=== PATIENT | female | born 1960 | race Caucasian/White ===

== ENCOUNTER → 2020-11-04 10:19 | Outpatient (CLI) | payer BC, SELFPAY ==
--- NOTE | ~2020-11-04 | DEXA_ITS ---
Bone Density Report Name: Daysi Schmidt Age: 60 Sex: Female Ethnicity: White Date of : 1960 Indication: postmenopausal; screening for osteoporosis; height loss; Referring Provider: Annamarie Lincoln Study: Bone densitometry was performed. Exam Date: November 04, 2020 Accession number: [id number] Bone Density: Region BMD T-score Z-score Classification AP Spine (L1-L4) 0.958 -0.8 0.7 Normal Femoral Neck (Left) 0.751 -0.9 0.4 Normal Total Hip (Left) 0.895 -0.4 0.6 Normal Femoral Neck (Right) 0.724 -1.1 0.2 Osteopenia Total Hip (Right) 0.843 -0.8 0.2 Normal Total Hip Mean 0.869 -0.6 0.4 Normal World Health Organization criteria for BMD impression classify patients as: Normal (T-score at or above -1.0), Osteopenia (T-score between -1.0 and -2.5), or Osteoporosis (T-score at or below -2.5). 10-year Fracture Risk(1): Major Osteoporotic Fracture 6.4% Hip Fracture 0.4% Reported Risk Factors: [place] (), Neck BMD=0.724, BMI=19.9 (1) FRAX(R) Version 3.08. Fracture probability calculated for an untreated patient. Fracture probability may be lower if the patient has received treatment. Clinical Information Provided by Patient: Has used the following medications: Vitamin D Patient maximum height was 68 Menopause Age: 49 Drinks caffeinated beverages Onset of menses at age 15 Number of children 0 Impression: The patient has low bone mass, based on the Right Femoral Neck T-score. The patient has an estimated ten-year risk of hip fracture of 0.4% and an estimated ten-year risk of major fracture of 6.4%, based on the WHO FRAX algorithm. Discussion: BONE DENSITY IS LOW AT ONE OR MORE SKELETAL SITES. This patient's lowest T-score is low at one or more skeletal sites. It meets the World Health Organization's (WHO) criteria for ?low bone mass? (T-score between -1.0 and -2.5). The patient's 10-year risk of fracture as calculated by FRAX is less than the threshold where pharmacological therapy is recommended by the National Osteoporosis Foundation (NOF). However, all treatment decisions require clinical judgment and consideration of individual patient factors, including patient preferences, comorbidities, previous drug use, risk factors not captured in the FRAX model (e.g., frailty, falls, vitamin D deficiency, increased bone turnover, interval significant decline in bone density) and possible under or overestimation of fracture risk by FRAX. The patient should follow a healthful lifestyle (good nutrition with adequate calcium and vitamin D, and appropriate weight-bearing exercise). Follow-Up: Consider repeating this study in 2 to 3 years to reassess this patient's status, or sooner if there is some new clinical indication. Reported by: TAWANNA on 11/04/2020 10:40:00 AM.
== END ==
PROVIDERS: PCP Internal Medicine
DX: E55.9 Vitamin D deficiency, unspecified (principal); M85.80 Other specified disorders of bone density and structure, unspecified site; E89.0 Postprocedural hypothyroidism; M85.851 Other specified disorders of bone density and structure, right thigh
CPT/HCPCS: 77080

== ENCOUNTER → 2023-01-16 12:24 | Outpatient (CLI) | payer BC, SELFPAY ==
--- NOTE | ~2023-01-16 | DEXA_ITS ---
Bone Density Report Name: ZACK RAWLS Age: 62 Sex: Female Ethnicity: White Date of : 1960 Indication: postmenopausal; screening for osteoporosis; height loss; Referring Provider: Annamarie Lincoln Study: Bone densitometry was performed. Exam Date: January 16, 2023 Accession number: [id number] Bone Density: Region BMD T-score Z-score Classification AP Spine (L1-L4) 0.955 -0.8 0.8 Normal Femoral Neck (Left) 0.696 -1.4 0.0 Osteopenia Total Hip (Left) 0.914 -0.2 0.9 Normal Femoral Neck (Right) 0.659 -1.7 -0.3 Osteopenia Total Hip (Right) 0.852 -0.7 0.4 Normal Total Hip Mean 0.883 -0.5 0.7 Normal World Health Organization criteria for BMD impression classify patients as: Normal (T-score at or above -1.0), Osteopenia (T-score between -1.0 and -2.5), or Osteoporosis (T-score at or below -2.5). 10-year Fracture Risk(1): Major Osteoporotic Fracture 9.0% Hip Fracture 1.0% Reported Risk Factors: [place] (), Neck BMD=0.659, BMI=23.4 (1) FRAX(R) Version 3.08. Fracture probability calculated for an untreated patient. Fracture probability may be lower if the patient has received treatment. Previous Exams: Region Exam Age BMD T-score BMD Change BMD Change Date g/cm2 vs Baseline vs Previous AP Spine(L1-L4) 01/16/2023 62 0.955 -0.8 -0.003 -0.003 11/04/2020 60 0.958 -0.8 Total Hip(Left) 01/16/2023 62 0.914 -0.2 0.019 0.019 11/04/2020 60 0.895 -0.4 Total Hip(Right) 01/16/2023 62 0.852 -0.7 0.008 0.008 11/04/2020 60 0.843 -0.8 *Denotes significance at 95% confidence level, LSC for AP Spine = 0.022 g/cm2, LSC for Total Hip = 0.027 g/cm2 Clinical Information Provided by Patient: Has used the following medications: Vitamin D, MTV Patient maximum height was 68 Menopause Age: 46 Onset of menses at age 15 Number of children 0 Impression: The patient has low bone mass, based on the Right Femoral Neck T-score. The patient has an estimated ten-year risk of hip fracture of 1% and an estimated ten-year risk of major fracture of 9%, based on the WHO FRAX algorithm. No significant bone loss was observed. Discussion: BONE DENSITY IS LOW AT ONE OR MORE SKELETAL SITES. This patient's lowest T-score is low at one or more skeletal sites. It meets the World Health Organization's (WHO) criteria for ?low bone mass? (T-score between -1.0 and -2.5). The patient's 10-ye
== END ==
PROVIDERS: PCP Internal Medicine
DX: Z78.0 Asymptomatic menopausal state (principal); M85.852 Other specified disorders of bone density and structure, left thigh; M85.851 Other specified disorders of bone density and structure, right thigh
CPT/HCPCS: 77080

== ENCOUNTER 2025-05-28 10:09 | Outpatient (CLI) | payer BC, SELFPAY ==
--- NOTE | ~2025-05-28 | DEXA_ITS ---
Bone Density Report Name: ZACK RAWLS Age: 65 Sex: Female Ethnicity: White Date of : 1960 Indication: postmenopausal; screening for osteoporosis; Referring Provider: RAMON MCKENZIE Study: Bone densitometry was performed. Exam Date: May 28, 2025 Accession number: [id number] Bone Density: Region BMD T-score Z-score Classification AP Spine(L1-L4) 0.960 -0.8 1.0 Normal Femoral Neck (Left) 0.700 -1.3 0.2 Osteopenia Total Hip (Left) 0.878 -0.5 0.7 Normal Femoral Neck (Right) 0.714 -1.2 0.3 Osteopenia Total Hip (Right) 0.869 -0.6 0.6 Normal Total Hip Mean 0.873 -0.6 0.7 Normal World Health Organization criteria for BMD impression classify patients as: Normal (T-score at or above -1.0), Osteopenia (T-score between -1.0 and -2.5), or Osteoporosis (T-score at or below -2.5). 10-year Fracture Risk(1): Major Osteoporotic Fracture 8.6% Hip Fracture 0.8% Reported Risk Factors: [place] (), Neck BMD=0.700, BMI=25.8 (1) FRAX(R) Version 3.08. Fracture probability calculated for an untreated patient. Fracture probability may be lower if the patient has received treatment. Previous Exams: -- Region Exam Age BMD T-score BMD Change BMD Change Date g/cm2 vs Baseline vs Previous -- AP Spine (L1-L4) 05/28/2025 65 0.960 -0.8 0.2% 0.5% 01/16/2023 62 0.955 -0.8 -0.3% -0.3% 11/04/2020 60 0.958 -0.8 Total Hip(Left) 05/28/2025 65 0.878 -0.5 -1.9% -3.9%* 01/16/2023 62 0.914 -0.2 2.2% 2.2% 11/04/2020 60 0.895 -0.4 Total Hip(Right) 05/28/2025 65 0.869 -0.6 3.0% 2.0% 01/16/2023 62 0.852 -0.7 1.0% 1.0% 11/04/2020 60 0.843 -0.8 -- *Denotes significance at 95% confidence level, LSC for AP Spine = 0.022 g/cm2, LSC for Total Hip = 0.027 g/cm2 Clinical Information Provided by Patient: Has used the following medications: Vitamin D Patient maximum height was 68 Menopause Age: 46 Drinks caffeinated beverages Onset of menses at age 15 Number of children 0 Impression: The patient has low bone mass, based on the Left Femoral Neck T-score. The patient has an estimated ten-year risk of hip fracture of 0.8% and an estimated ten-year risk of major fracture of 8.6%, based on the WHO FRAX algorithm. The BMD for the Total Hip(Left) decreased, changing by -3.9% since the last DXA exam. Discussion: BONE DENSITY IS LOW AT ONE OR MORE SKELETAL SITES. This patient's lowest T-score is low at one or more skeletal sites. It meets the World Health Organization's (WHO) criteria for ?low bone mass? (T-score between -1.0 and -2.5). The patient's 10-year risk of fracture as calculated by FRAX is less than the threshold where pharmacological therapy is recommended by the National Osteoporosis Foundation (NOF). However, all treatment decisions require clinical judgment and consideration of individual patient factors, including patient preferences, comorbidities, previous drug use, risk factors not captured in the FRAX model (e.g., frailty, falls, vitamin D deficiency, increased bone turnover, interval significant decline in bone density) and possible under or overestimation of fracture risk by FRAX. The patient should follow a healthful lifestyle (good nutrition with adequate calcium and vitamin D, and appropriate weight-bearing exercise). Follow-Up: Consider repeating this study in 2 years to reassess this patient's status, or sooner if there is some new clinical indication. Reported by: AVINASH on 05/28/2025 10:42:00 AM. Reviewed, dictated and finalized at location A.
== END 2025-05-28 10:10 | disposition home or self-care (01) ==
LOC: MICIMG 10:12
PROVIDERS: PCP Internal Medicine
DX: Z78.0 Asymptomatic menopausal state (principal); M85.80 Other specified disorders of bone density and structure, unspecified site; M85.852 Other specified disorders of bone density and structure, left thigh; M85.851 Other specified disorders of bone density and structure, right thigh
CPT/HCPCS: 77080